=== PATIENT | female | born 1975 | race Two or more races ===

== ENCOUNTER 2025-01-02 11:50 | Day surgery (SDC) | payer MEDICAID, SELFPAY ==
[2024-12-31 13:37] VITALS: BMI 32.0
[2025-01-02] VITALS (11 sets, daily range): BP systolic 95–130; BP diastolic 55–71; PULSE 47–65; RESP 13–27; TEMP 36.6–36.7; O2SAT 96–100; BMI 32.0
[2025-01-02 12:16] LABS: HCG Qualitative,Urine Negative
[2025-01-02] MEDS: RINGERS LACTATED 1000 ML 1,000 ML 125 ML IV (12:40)
[2025-01-02] MEDS: fentaNYL CIT INJ 50 mCg/ML AMP 2ML (ASD USE ONLY) IVP (12:47)
[2025-01-02] MEDS: MIDAZOLAM INJ 1 MG/ML VIAL 2 ML (ASD USE ONLY) 2 MG IVP (12:47)
== END 2025-01-02 13:52 | disposition home or self-care (01) ==
PROVIDERS: Referring Provider Surgery; Visit Provider Surgery
PROC: 0DBE8ZX Excision of Large Intestine, Via Natural or Artificial Opening Endoscopic, Diagnostic (ICD-10-PCS; CPT 45380; principal; 2025-01-02 13:00)
DX: Z12.11 Encounter for screening for malignant neoplasm of colon (principal)
CPT/HCPCS: 45378; 81025; A4217; J2250; J3010; J7120